=== PATIENT | male | born 1965 | race Caucasian/White ===

== ENCOUNTER → 2024-01-29 14:59 | Outpatient (REF) | payer OTHER, SELFPAY | LOC: RCS 14:59 | PROVIDERS: ATTENDING PHYSICIAN Nuclear Medicine Nuclear Cardiology; FAMILY PHYSICIAN Physician Assistant Medical | DX: R00.1 Bradycardia, unspecified (principal); I25.10 Atherosclerotic heart disease of native coronary artery without angina pectoris | CPT/HCPCS: 93306 ==

== ENCOUNTER 2024-09-21 02:22 | Inpatient (IN) | payer OTHER, SELFPAY ==
[2024-09-20 20:36] VITALS: BP 123/72
[2024-09-20 21:04] LABS: % Basophils 0.4 % (0-2); % Eosinophils 0.1 % (0-6); % Immature Granulocytes 0.4 % (0-0.5); % Lymphocytes 10.9 % (20.5-51.1); % Monocytes 7.2 % (1.7-9.3); Absolute Basophils 0.1 10^3/uL (0-0.2); Absolute Immature Granulocytes 0.1 10^3/uL (0-0.05); Absolute Lymphocytes 1.7 10^3/uL (1.2-3.4); Absolute Monocytes 1.1 10^3/uL (0.1-0.6); Absolute Neutrophils 12.3 10^3/uL (1.4-6.5); Hematocrit 45.5 % (39.0-52.0); Hemoglobin 16.1 g/dL (13.0-18.0); Mean Corp Hgb Conc. 35.4 g/dL (33.0-37.0); Mean Corpuscular Hgb 30.3 pg (27.0-31.0); Mean Corpuscular Volume 85.7 fL (80.0-94.0); Nucleated Red Blood Cells % 0 % (-); Platelet Count 210 10^3/uL (130-400); Red Blood Cell Count 5.31 10^6/uL (4.70-6.10); Red Cell Dist. Width 11.8 % (11.5-14.5); White Blood Cell Count 15.2 10^3/uL (4.8-10.8)
[2024-09-20 21:09] VITALS: BMI 25.8
[2024-09-20 21:15] LABS: Lactic Acid 3.5 mmol/L (0.7-2.0)
[2024-09-20 21:25] LABS: Blood Urea Nitrogen 14 mg/dl (9-20); Calcium 10.2 mg/dl (8.4-10.2); Carbon Dioxide 22 mmol/L (22-30); Chloride 105 mmol/L (98-107); Estimated Creatinine Clearance 94 ml/min; Glucose 109 mg/dl (70-99); Sodium 142 mmol/L (135-145); eGFR > 60.00
[2024-09-20 21:35] LABS: Lipase 142 U/L (23-300)
[2024-09-20 21:53] LABS: ALT (SGPT) 22 U/L (0-50); AST (SGOT) 23 U/L (17-59); Albumin 4.6 g/dl (3.5-5.0); Alkaline Phosphatase 70 U/L (38-126); Direct Bilirubin 0.3 mg/dl (0.0-0.4); Total Bilirubin 1.3 mg/dl (0.2-1.3); Total Protein 6.6 g/dl (6.3-8.2)
--- NOTE | 2024-09-20 22:42 | ED.GENMED ---
History of Present Illness
General
Chief Complaint: Abdominal Pain
Time Seen by Provider: 09/20/24 22:41
History of Present Illness
History of Present Illness:
TIME OF INITIAL ENCOUNTER: 10:45 PM
HPI: The patient presents with diffuse abdominal pain that started this morning and then acutely worsened around 6 PM tonight. The pain has been worsening since that time. This is associated with a few episodes of vomiting. He has not had any
diarrhea. He denies any other abdominal surgeries.
EXAM:
GENERAL: Well appearing but appears very uncomfortable
HEENT: Moist oral mucosa
CARDIOVASCULAR: No murmurs, normal heart rate, regular rhythm, No chest wall tenderness
PULMONARY: No respiratory distress, breath sounds are clear and equal
ABDOMEN: Soft with no peritoneal signs, minimal left-sided abdominal tenderness, more prominent right sided abdominal tenderness mostly in the right lower quadrant
NEUROLOGIC: Excellent strength all extremities, no coordination deficits
PSYCHIATRIC: Appropriate mental status, normal insight and judgement
EXTREMITIES: Nontender, no edema, moves all extremities equally
SKIN: No rash, no lesions
NUMBER AND COMPLEXITY OF PROBLEMS ADDRESSED AT THE ENCOUNTER
� Chronic conditions affecting care: GERD, stomach ulcers, CAD
� Acute Exacerbation and/or Progression of Chronic Illness: This is an acute problem
� Differential Diagnosis includes: Exacerbation of GERD, bowel perforation, mesenteric ischemia
AMOUNT AND/OR COMPLEXITY OF DATA TO BE REVIEWED AND ANALYZED
� I performed an independent evaluation of and my interpretation is:
EKG: Sinus 47, normal axis, no acute ST abnormality
CT: The CAT scan shows dilated appendix measuring 1.3 cm with marked inflammatory changes and some hyperemia
X-rays:
Laboratory Studies: White count 15.2 lactic is 3.5, otherwise chemistries unremarkable
Other:
� Review of other/old records: The patient had an exercise nuclear stress test it was felt to be a low risk study in November 2022
� Clinical information was obtained by an independent historian: I spoke to at bedside
� Prescriptions/Medications Considered but not given:
� Further testing considered but not performed:
RISK OF COMPLICATIONS AND/OR MORBIDITY OR MORTALITY OF PATIENT MANAGEMENT
� Social determinants of health affecting care: Lives at home
� Discussion with other providers: Notified Dr. Dietrich of CT result and patient's workup at 12:25 AM. He recommends hospitalist admission. Dr. Godfrey for admission.
� Escalation of care including admission/observation vs risk of discharge considered: The patient appears very uncomfortable upon arrival. Leukocytosis and elevated lactic noted. I have ordered analgesia, 2 L of fluid, and will
obtain CT imaging emergently.
ANY OTHER UPDATES:
12:25 AM: I reassessed patient, the patient received Dilaudid 1 mg twice.
Past History
Past History
ED Past Medical History: GERD
ED Past Surgical History: None
Social History
Tobacco: Smoker
Alcohol: None
Drug: None
Phy Exam
Physical Exam
Physical Exam:
See HPI
Course
Orders/Labs/Results
Orders:
Orders
09/20/24 20:40
ECG [Electrocardiogram (*1)] Urgent
Reason for Study: Abdominal Pain
EKG- Treatment ONCE
09/20/24 20:49
Basic Metabolic Panel Urgent
Complete Blood Count/With Diff Urgent
Lactic Acid Urgent
Lipase Urgent
09/20/24 21:31
LFT [Znuob-Brfa-Sktkkko] Urgent
Potassium Urgent
09/20/24 22:48
0.9% Sodium Chloride 1000 ml [Nss] 1,000 ml IV BOLUS
0.9% Sodium Chloride 1000 ml [Nss] 1,000 ml IV BOLUS
09/20/24 22:52
Ondansetron Injectable [Zofran] 4 mg .ROUTE .STK-MED ONE
09/20/24 22:53
CT Abd/pelvis W Iv Cont Urgent
Comment:
Reason For Exam: acute severe abd pain, vomiting, high lactic/WBC
HYDROmorphone [Dilaudid] 1 mg .ROUTE .STK-MED ONE
HYDROmorphone [Dilaudid] 1 mg IV NOW STA
Ondansetron Injectable [Zofran] 4 mg IV NOW STA
09/20/24 22:54
Famotidine [Pepcid] 20 mg IV NOW STA
Pantoprazole [Protonix IV] 40 mg IV NOW STA
09/21/24 00:13
HYDROmorphone [Dilaudid] 1 mg IV NOW STA
09/21/24 00:16
MetroNIDAZOLE 500 MG/100 ML [Flagyl 500 mg] 100 ml IV NOW
09/21/24 00:52
Ciprofloxacin 400 mg/[id number] [Cipro 400 mg] 200 ml IV NOW
Abnormal Lab Results
09/20/24
20:49
WBC 15.2 H 10^3/uL
(4.8-10.8)
Abs Immat Gran (auto) 0.1 H 10^3/uL
(0-0.05)
Absolute Neuts (auto) 12.3 H 10^3/uL
(1.4-6.5)
Absolute Monos (auto) 1.1 H 10^3/uL
(0.1-0.6)
Neutrophils % 81.0 H %
(42.2-75.2)
Lymphocytes % 10.9 L %
(20.5-51.1)
Glucose 109 H mg/dl
(70-99)
Lactic Acid 3.5 H mmol/L
(0.7-2.0)
09/20/24 20:49
09/20/24 21:31
Vital Signs
Initial and Last Documented VS:
Initial Vital Signs
Temp Pulse Resp BP Pulse Ox
36.8 C 50 20 123/72 99
09/20/24 20:36 09/20/24 20:36 09/20/24 20:36 09/20/24 20:36 09/20/24 20:36
Last Documented Vital Signs
Temp Pulse Resp BP Pulse Ox
36.8 C 58 13 123/72 92
09/20/24 20:36 09/21/24 00:45 09/21/24 00:45 09/20/24 20:36 09/21/24 00:45
*Critical Care Note
Total Time (30-74mins, 75-104mins- exclusive of procedures): Not Applicable
ED Attending Note
-
Portions of this chart may have been created with voice recognition software.� Occasional wrong word or��sound alike� substitutions may have occurred due to the inherent limitations of voice recognition software.
Discharge Plan
Departure
Patient Disposition: Admit
Date of Disposition: 09/21/24
Time of Disposition: 00:45
Presentation/result/management discussed w/ accepting MD/DO: Hospitalist
Discharge Problem:
Acute appendicitis
Prescriptions:
No Action
aspirin 81 MG tablet,chewable
81 mg PO DAILY 0RF
atorvastatin 80 MG tablet
80 mg PO QPM Qty: 30 5RF
clopidogrel 75 MG tablet
75 mg PO DAILY Qty: 30 5RF
metoprolol succinate 25 MG tablet extended release 24 hr
25 mg PO HS Qty: 30 5RF
lisinopril 2.5 MG tablet
2.5 mg PO DAILY Qty: 30 5RF
Referrals:
Zoe Lemus PA-C [Family Provider] -
Interventions
Interventions:
*Risk Screen - Suicide Last Done: 09/20/24 21:09
*General Assessment Last Done: 09/20/24 20:36
*Neglect/Abuse Screening Last Done: 09/20/24 21:09
*ED- Fall Risk Assessment Last Done: 09/20/24 21:09
*ED COVID-19 Vaccine History Last Done: 09/20/24 21:09
DS-Shmbge-Ogjqejdjja Assessment Last Done: 09/20/24 21:17
Discharge Date and Time
Print Language: [place]
[2024-09-20] MEDS: NSS 1000 IV (22:56)
[2024-09-20] MEDS: ZOFRAN 4 MG IV (22:57)
[2024-09-20] MEDS: DILAUDID 1 MG IV (22:57)
[2024-09-20] MEDS: PEPCID 20 MG IV (22:59)
[2024-09-20] MEDS: PROTONIX IV 40 MG IV (23:03)
[2024-09-21] VITALS (11 sets, daily range): BP systolic 89–133; BP diastolic 48–75; BMI 25.7
[2024-09-21] MEDS: DILAUDID 1 MG IV (00:17)
[2024-09-21] MEDS: NSS 1000 IV (00:20)
[2024-09-21] MEDS: FLAGYL 500 MG 100 IV ×2 (00:47→08:27)
--- NOTE | 2024-09-21 02:03 | HPS.HSE ---
Family Physician
-
Family Physician: Zoe Lemus PA-C
Chief Complaint
-
Abd pain
History of Present Illness
Patient is a 59y M with PMH significant for ASCVD who presents to ED complaining of abdominal pain. Patient states that he woke Monday AM with generalized abdominal discomfort that gradually worsened throughout the day. This evening he
developed nausea and has had three episodes of non-bloody emesis. He states that that pain has ultimately consolidated in the RLQ and low back. He presented to the ED for further evaluation where CT scan shows acute appendicitis.
Medical History
Past Medical History
Past Medical History: Reports Other
Additional Past Medical History:
ASCVD
GERD
Past Surgical History: Reports Other
Additional Past Surgical History:
PTCA with Stent (2019)
T&A
Social History
Tobacco: Former Smoker (History of tobacco use > 20 pack years. Current vape use.)
Alcohol: Occasional
Drug: None
Family History
Family History: Not pertinent
Allergies / Home Medications
Allergies reflects when Allergies were last updated in [facility].
Home Medications with original date entered in [facility]
Allergy/Medication List:
Allergies
Allergy/AdvReac Type Severity Reaction Status Date / Time
Penicillins Allergy Unknown Verified 09/20/24 20:36
Home Medications
aspirin 81 mg chewable tablet 81 mg PO DAILY 03/26/20
atorvastatin 80 mg tablet 80 mg PO QPM #30 tabs 03/27/20
lisinopril 2.5 mg tablet 2.5 mg PO DAILY #30 tabs 03/27/20
metoprolol succinate 25 mg tablet,extended release 24 hr 12.5 mg PO HS 09/21/24
Review of Systems
-
History Source: Patient
A 12 point ROS was completed and negative except as noted: Yes
Constitutional: Denies Fever or Chills
EENT: Denies Sore Throat
Respiratory: Denies Cough or Trouble Breathing
Cardiac: Denies Chest Pain or Palpitations
Abdomen/GI: Reports Abdominal Pain, Nausea and Vomiting; Denies Diarrhea or Bloody Stools
: Denies Dysuria, Frequency or Flank Pain
Musculoskeletal: Denies Edema
Neurological: Denies Dizzy or Headache
Psych: Denies Depression or Anxiety
Physical Exam
Vital Signs
Vital Signs
Temp Pulse Resp BP Pulse Ox
98.2 F 57 14 117/75 94
09/20/24 20:36 09/21/24 01:45 09/21/24 01:45 09/21/24 01:09 09/21/24 01:45
Physical Exam
General: Other (59y M in mild distress due to abdominal pain.)
HEENT: Moist mucous membranes and PERRLA
Respiratory: Clear; No Wheezes, Rales or Rhonchi
Cardiac: S1/S2 and Regular Rhythm; No Murmur
GI: Soft, Non Distended, Normal Bowel Sounds and Other (Pos RLQ tenderness with guarding. No rebound. Pos BS.)
Musculoskeletal: No Clubbing, No Cyanosis and No Edema
Neuro: AO x 3
Laboratory Results
-
09/20/24 20:49
09/20/24 21:31
Laboratory Results
Lactic Acid 3.5 mmol/L (0.7-2.0) H 09/20/24 20:49
Total Bilirubin 1.3 mg/dl (0.2-1.3) 09/20/24 21:31
AST 23 U/L (17-59) 09/20/24 21:31
ALT 22 U/L (0-50) 09/20/24 21:31
Alkaline Phosphatase 70 U/L (38-126) 09/20/24 21:31
Lipase 142 U/L (23-300) 09/20/24 20:49
Impression/Plan
-
A/P: Patient is a 59y M with PMH significant for ASCVD who presents to ED complaining of abdominal pain x 24 hours.
Acute Appendicitis
- Admit for further evaluation and treatment.
- Continue abx with Cipro / Flagyl for now given PCN allergy.
- Pain control, antiemetics, etc.
- Surgery consulted for definitive treatment.
ASCVD
- PTCA 5 years ago.
- Continue ASA uninterrupted.
- Hold other medications (beta-gary, statin, etc) acutely and resume upon discharge.
Sinus Bradycardia
- Long history of bradycardia - evaluated / reassured by Cardiology in the past.
- Holding metoprolol acutely as noted above.
- Monitor on tele for any significant blocks / pauses.
DVT Prophylaxis: SCDs
Code Status: Full
[2024-09-21] MEDS: CIPRO 400 MG 200 IV ×2 (02:08→12:57)
[2024-09-21] MEDS: LR 1000 IV (03:30)
[2024-09-21] MEDS: DILAUDID 0.5 MG IV ×3 (03:32→10:01)
--- NOTE | 2024-09-21 04:27 | PTCARENOTE ---
Pt arrived 0330 from ED. Pt was able to ambulate into room. VSS. IVF infusing. pain 12/29 (see MAR). head to toe assessment complete. oriented to room and call amezquita. bed locked and in the lowest position.
--- NOTE | 2024-09-21 07:39 | W.PN.HOSP.TC ---
Addendum entered and electronically signed by Jackson Sanchez MD 09/21/24 15:33:
Seen and examined by me independently in collaboration with the certified medical coding specialist.
Lab data and imaging data reviewed.
Addendum as below :
Patient admitted with uncomplicated appendicitis and now status post lap appendectomy without immediate complication. Cleared for discharge per surgery. Continue with postop antibiotics per surgery.
No new medical issues encountered. Continue with his home medication as before without changes.
Follow-up with surgery as outpatient for postop check.
Original Note:
Today's Communication/Plan
-
s/p lap appendectomy
can d/c today on PO abx levaquin/flagyl
Assessment / Plan
Assessment / Plan
59 yo male with acute abdominal pain initially generalized which localized to the RLQ
CT Abd/Pelvis - kushal carrero read showing acute uncomplicated appendicitis. Pending our read.
#Acute Uncomplicated Appendicitis s/p appendectomy
#Sepsis 2/2 acute appendicitis
- leukocytosis, tachypnea, source of infection
- Blood cx drawn, results pending
- s/p 2L LR bolus; c/w IVF
- on IV Cipro/Flagyl due to penicillin allergy
- prn tylenol/dilaudid, compazine
- Surgery consulted -- uneventful laparoscopic appendectomy -- cleared for d/c from surgery on levquin/flagyl
#ASCVD
H/o of PTCA 2019
- c/t hold statins
- c/t hold antihypertensives given acute infection/risk of hypotension
#Sinus Bradycardia
- chronic, managed by cardiology op.
- ECG this admission consistent with prior in 2019
- holding BB
- observe for symptomatic bradycardia
DVT PPx: SCDs
Code Status: Full Code
Anticipated Discharge: 24 - 48 hours
Subjective/Interval History
-
Date of Service: September 21, 2024
Still in significant pain this morning, barely relieved by IV dilaudid.
Objective Data
-
Labs:
Laboratory Results
09/20/24 09/20/24 09/21/24
20:49 21:31 07:16
WBC 15.2 H Pending
Hgb 16.1 Pending
Hct 45.5 Pending
Plt Count 210 Pending
PT Pending
INR Pending
APTT Pending
Sodium 142 Pending
Potassium 4.0 Pending
Chloride 105 Pending
Carbon Dioxide 22 Pending
BUN 14 Pending
Creatinine 0.9 Pending
Glucose 109 H Pending
Calcium 10.2 Pending
Total Bilirubin Cancelled 1.3
AST Cancelled 23
ALT Cancelled 22
Alkaline Phosphatase Cancelled 70
Vital Signs:
Vital Signs
Temp Pulse Resp BP Pulse Ox
98.0 F 53 18 102/48 99
09/21/24 03:15 09/21/24 03:15 09/21/24 03:15 09/21/24 03:15 09/21/24 04:22
Review of Systems
-
Constitutional: Reports No Symptoms
EENT: Reports No Symptoms Reported
Respiratory: Reports No Symptoms
Cardiac: Reports No Symptoms
Abdomen/GI: Reports Abdominal Pain; Denies Nausea, Vomiting or Diarrhea
Musculoskeletal: Reports No Symptoms
Skin: Reports No Symptoms
Physical Exam
-
General: Well Developed, Well Nourished, Appears in Distress and Pain
HEENT: Normocephalic, Atraumatic, Moist Mucous Membranes, Anicteric, [place] Conjunctivae, Nose Appears Normal and Ears Appear Normal
Respiratory: Clear to Auscultation; Negative Wheezes, Rales or Rhonchi
Cardiac: Regular Rhythm and S1/S2; Negative Murmur or Rub
GI: Soft and Tender
Genito-urinary: Deferred by me
Musculoskeletal: No Clubbing, No Cyanosis and No Edema
Skin: Warm, Dry and IV Access / Catheter Site
Neuro: Awake, Alert and Oriented
[2024-09-21] MEDS: LOW STRENGTH ASPIRIN 81 MG PO (08:09)
[2024-09-21 08:21] LABS: Hemoglobin 14.2 g/dL (13.0-18.0); Mean Corp Hgb Conc. 34.6 g/dL (33.0-37.0); Mean Corpuscular Hgb 30.4 pg (27.0-31.0); Mean Corpuscular Volume 87.8 fL (80.0-94.0); Mean Platelet Volume 10.2 fL (7.4-10.4); Platelet Count 200 10^3/uL (130-400); Red Blood Cell Count 4.67 10^6/uL (4.70-6.10); White Blood Cell Count 12.2 10^3/uL (4.8-10.8)
[2024-09-21 08:30] LABS: INR 1.07; PT 14.2 Sec (11.4-14.6)
[2024-09-21 08:31] LABS: APTT 28.2 Sec (23.4-35.0)
[2024-09-21 08:54] LABS: Blood Urea Nitrogen 13 mg/dl (9-20); Calcium 8.9 mg/dl (8.4-10.2); Carbon Dioxide 27 mmol/L (22-30); Chloride 104 mmol/L (98-107); Estimated Creatinine Clearance 94 ml/min; Glucose 102 mg/dl (70-99); Potassium 4.3 mmol/L (3.5-5.1); Sodium 139 mmol/L (135-145); eGFR > 60.00
[2024-09-21 10:05] LABS: LDH 143 U/L (120-246)
--- NOTE | 2024-09-21 10:54 | CM ---
Addendum entered by Cindy Shook 09/21/24 15:22:
Patient states he has a ride home and declined VN. Patient for discharge home today. CM will continue to follow for discharge needs.
Original Note:
Patient seen at bedside in [address] [place] [address]. Patient states that he lives alone in a one story home. Patient PCP is CHAVA Lemus and he uses the [facility] in [place]. Patient stated that he is independent of ADL's and IADL's with no needs at this
time. CM will continue to follow for discharge planning needs.
Plan; home with no needs anticipated.
--- NOTE | 2024-09-21 11:30 | CON.GS ---
Addendum entered and electronically signed by Alexandre Dietrich MD 09/21/24 12:27:
I saw and examined the patient.
The Government Gauger's note was reviewed and I agree with the note.
Comment: Ongoing RLQ pain, mod-sev, ttp to RLQ. CT c/w acute appendicitis, uncomplicated. OCTOR for lap appy
Original Note:
Consultation
-
Date/Time Consultation Performed: 09/21/2024 0910
Medical History
-
Chief Complaint: rlq pain
History of Present Illness:
59 yo male with a h/o CAD with OK s/p stent in 2019, nl stress testing in 2022 and T&A who presents with RLQ pain which began yesterday morning awakening him from sleep. He developed nausea and vomiting later that day with worsening pain causing him
to present through the ED for evaluation. He has persistent pain this morning although nausea has improved. He denies fevers or chills. he alise bowel or bladder changes.
Past Medical History
Past Medical History: CAD and OK
Past Surgical History: Cardiac (LAD stent 2019) and Tonsilectomy
Social History
Tobacco: Other (prior cigarette smoker, active Vape user)
Alcohol: Occasional
Family History
Family History: Reviewed & Not Pertinent
Allergies / Home Medications
Allergy/AdvReac Type Severity Reaction Status Date / Time
Penicillins Allergy Unknown Verified 09/20/24 20:36
�Medication �Instructions �Recorded �Confirmed �Type
aspirin 81 mg chewable tablet 81 mg PO DAILY 03/26/20 09/21/24 Rx
atorvastatin 80 mg tablet 80 mg PO QPM #30 tabs 03/27/20 09/21/24 Rx
lisinopril 2.5 mg tablet 2.5 mg PO DAILY #30 tabs 03/27/20 09/21/24 Rx
metoprolol succinate 25 mg 12.5 mg PO HS 09/21/24 09/21/24 History
tablet,extended release 24 hr
Review of Systems
-
History Source: Patient
All other systems: Negative unless noted
A 10 point review of systems was completed, and was negative except as per HPI.
Physical Exam
Vital Signs
Temp Pulse Resp BP Pulse Ox
99.6 F 56 16 133/63 95
09/21/24 07:55 09/21/24 07:55 09/21/24 07:55 09/21/24 07:55 09/21/24 07:55
09/20/24 09/21/24 09/22/24
06:59 06:59 06:59
Actual Weight 83.461 kg
Body Mass Index (BMI) 25.7
Lab Results
09/21/24 07:16
09/21/24 07:16
WBC 12.2 10^3/uL (4.8-10.8) H 09/21/24 07:16
Hgb 14.2 g/dL (13.0-18.0) 09/21/24 07:16
Hct 41.0 % (39.0-52.0) 09/21/24 07:16
Plt Count 200 10^3/uL (130-400) 09/21/24 07:16
Abs Immat Gran (auto) 0.1 10^3/uL (0-0.05) H 09/20/24 20:49
Neutrophils % 81.0 % (42.2-75.2) H 09/20/24 20:49
Physical Exam
General: Well Developed and Well Nourished
HEENT: Moist Mucous Membranes
Respiratory: Non Labored Respirations
GI: Soft, Non Distended, Tender (severe to RLQ) and Other (voluntary gaurding)
Skin: Warm and Dry
Neuro: Awake, Alert and AO x 3
Psych: Calm
Assessment / Plan
-
59 yo male with h/o OK and stent in 2019 who presents with RLQ pain over the last 24h with n/v. CT imaging reviewed and consistent with acute appendicitis as is his exam. No perforation evident on imaging. Leukocytosis present, afebrile. Stable
vital signs. Lactic acid elevated to 3.5 in ED. Blood cx pending.
--Will arrange for laparoscopic appendectomy today
--NPO for OR/IVF while NPO
--C/W cipro/flagyl
--Analgesics/antiemetics
--SCDs for VTE ppx
--- NOTE | 2024-09-21 12:28 | OR.RPT ---
Operative Report
Operative Report
Primary Surgeon: Karlo
Pre-op Diagnosis: Acute appendicitis
Post-op Diagnosis: Same
Procedure Performed: Laparoscopic appendectomy
Anesthesia Type: GETA
Specimen / Cultures: Appendix
Estimated Blood Loss: 10cc
Complications: None immediate
Operative Findings: Inflamed retrocecal non-perforated appendix with gangrenous changes; scan yellow turbid fluid in pelvis suctioned
Date of Surgery: 09/21/24
Indications: This 59M developed right lower quadrant abdominal pain and on workup was found to have acute appendicitis. Laparoscopic appendectomy was elected.
Description of procedure: The patient was placed on the operating table in the supine position. General anesthesia was induced. A time-out was completed verifying correct patient, procedure, site, positioning, and special equipment prior to
beginning this procedure. An orogastric tube was placed. The abdomen was prepped and draped in the usual sterile fashion. A stab incision was made in left upper quadrant and the Veress needle was inserted. Proper position was confirmed by aspiration
and saline meniscus test. The abdomen was insufflated with carbon dioxide to a pressure of 12 mmHg. The patient tolerated insufflation well.
A 5mm optical trocar was then inserted at the left lower quadrant. The laparoscope was inserted and the abdomen inspected. No injuries from initial trocar placement or Veress needle insertion were noted. Additional trocars were then inserted in the
following locations: a 12-mm trocar at the umbilicus and a 5-mm trocar midline in the suprapubic space. The abdomen was inspected and no abnormalities were found. The table was placed in the Trendelenburg position with the right side up. The tip of
the appendix was in retrocecal position, it was bluntly swept inferiorly and the tip was gently grasped with an atraumatic grasper and retracted toward the patient�s feet and abdominal wall. This maneuver exposed the appendiceal blood supply which
was controlled with the voyant device. Following this, a laparoscopic linear cutting stapler with a 45mm yee load was deployed and used to transect the appendix at its base. The appendix was placed in an endoscopic retrieval bag, removed through the
umbilical port, and passed off the table as a specimen.
We then turned our attention to the staple line, which was noted to be hemostatic. Scant turbid yellow fluid was suctioned from the pelvis. The umbilical trocar site was closed at the fascial level laparoscopically with 2-0 PDS under direct vision.
Secondary trocars were removed under direct vision and noted to be hemostatic. The laparoscope was withdrawn and the abdomen was allowed to collapse. The skin was closed with subcuticular sutures of 4-0 monocryl and topical skin adhesive. The
orogastric tube was removed.
The patient tolerated the procedure well and was taken to the postanesthesia care unit in stable condition.
[2024-09-21] MEDS: TYLENOL 650 MG PO (14:57)
--- NOTE | 2024-09-21 18:34 | W.DCSUMMARY ---
Discharge Summary
Discharge Data
Date of Admission: 09/21/24
Date of Discharge: 09/21/24
Total time spent discharging patient (in min): >30m
-
Pending Results: No
Additional Pending Results:
Blood Cultures
Hospital Course
Discharging Physician : Dr. Stone Price, Dr. Jackson Sanchez
Disposition : Home
Primary care physician : Dr. Zoe Lemus
Principal Discharge diagnosis : Acute Appendicitis, Laparoscopic Appendectomy
Chronic Discharge diagnosis : ASCVD, Sinus Bradycardia
Hospital Course :
59 yo male with acute abdominal pain initially generalized, which localized to the RLQ
#Acute Uncomplicated Appendicitis s/p appendectomy
#Sepsis 2/2 acute appendicitis
- leukocytosis, tachypnea, source of infection
- Blood cx drawn, results pending
- given 2L LR bolus; c/w IVF
- given IV Cipro/Flagyl due to penicillin allergy
- prn Tylenol/Dilaudid for pain, Compazine for nausea
- Surgery consulted -- patient was taken for uneventful laparoscopic appendectomy -- cleared for d/c from surgery on oral abx levquin/flagyl
#ASCVD
H/o of PTCA 2019
- statins held and resumed on discharge
- antihypertensives held given acute infection/risk of hypotension; resumed on discharge
#Sinus Bradycardia
- chronic, managed by cardiology as outpatient
- ECG this admission consistent with prior in 2019
- Metoprolol Succinate was held; resumed on admission
- no symptoms of bradycardia
Important imaging findings :
CT Abd/pelvis W Iv Cont:
Findings consistent with acute uncomplicated appendicitis.
Procedure findings :
Laparoscopic appendectomy:
Inflamed retrocecal non-perforated appendix with gangrenous changes; scan yellow turbid fluid in pelvis suctioned.
Discharge Plan
-
Patient Disposition: Home (Routine Discharge)
Discharge Diagnosis/Procedures: Acute appendicitis, laparoscopic appendectomy
Condition: Good
Diet: No restrictions
Activity: No strenuous activity and Other activity
Additional Activity: No heavy lifting until seen by surgeon
Driving Restrictions: As prior to admission
Bathing Restrictions: OK to Shower
Referrals:
Alexandre Dietrich MD [Active] - in two to four weeks
Zoe Lemus PA-C [Family Provider] -
Prescriptions:
New
levofloxacin 750 mg tablet
750 mg PO DAILY 5 Days Qty: 5 0RF
metronidazole 500 mg tablet
500 mg PO Q8H 5 Days Qty: 15 0RF
oxycodone 5 mg tablet
5 mg PO Q4HPRN PRN (Reason: breakthrough/severe pain) Qty: 10 0RF
Continued
aspirin 81 MG tablet,chewable
81 mg PO DAILY 0RF
atorvastatin 80 MG tablet
80 mg PO QPM Qty: 30 5RF
lisinopril 2.5 MG tablet
2.5 mg PO DAILY Qty: 30 5RF
metoprolol succinate 25 MG tablet extended release 24 hr
12.5 mg PO HS
Discharge Orders:
Discharge Patient (As Directed); Ordered 09/21/24
Ordered By: Stone Price
Discharge Date and Time
Discharge Date/Time: 09/21/24 15:38
Print Language: [place]
== END 2024-09-21 15:38 | disposition home or self-care (01) | DRG 397 ==
LOC: 2 SOUTH 02:22
PROVIDERS: Emergency Medicine; ADMITTING PHYSICIAN Hospitalist; ATTENDING PHYSICIAN Internal Medicine; CONSULT PHYSICIAN Surgery; EMERGENCY PHYSICIAN Emergency Medicine; FAMILY PHYSICIAN Physician Assistant Medical
PROC: 0DTJ4ZZ Resection of Appendix, Percutaneous Endoscopic Approach (ICD-10-PCS; 2024-09-21)
DX: K35.891 Other acute appendicitis without perforation, with gangrene (principal); A41.9 Sepsis, unspecified organism; I25.10 Atherosclerotic heart disease of native coronary artery without angina pectoris; Z88.0 Allergy status to penicillin; K21.9 Gastro-esophageal reflux disease without esophagitis; Z95.5 Presence of coronary angioplasty implant and graft; Z79.82 Long term (current) use of aspirin; F17.200 Nicotine dependence, unspecified, uncomplicated; Z79.899 Other long term (current) drug therapy
CPT/HCPCS: 88304; 74177; 80048; 80076; 83605; 83615; 83690; 84132; 85025; 85027; 85610; 85730; 87040; 93005; 96361; 96365; 96375; 96376; 99285; C1776; Q9967

== ENCOUNTER 2024-09-29 23:24 | Observation (INO) | payer OTHER, SELFPAY ==
[2024-09-29 16:01] VITALS: BP 123/79
[2024-09-29 17:27] LABS: % Basophils 0.4 % (0-2); % Eosinophils 2.7 % (0-6); % Immature Granulocytes 0.8 % (0-0.5); % Lymphocytes 13.9 % (20.5-51.1); % Monocytes 5.5 % (1.7-9.3); % Neutrophils 76.7 % (42.2-75.2); Absolute Eosinophils 0.3 10^3/uL (0-0.7); Absolute Immature Granulocytes 0.1 10^3/uL (0-0.05); Absolute Lymphocytes 1.4 10^3/uL (1.2-3.4); Absolute Monocytes 0.6 10^3/uL (0.1-0.6); Absolute Neutrophils 7.6 10^3/uL (1.4-6.5); Hematocrit 47.4 % (39.0-52.0); Hemoglobin 16.5 g/dL (13.0-18.0); Mean Corp Hgb Conc. 34.8 g/dL (33.0-37.0); Mean Corpuscular Hgb 30.2 pg (27.0-31.0); Mean Corpuscular Volume 86.8 fL (80.0-94.0); Mean Platelet Volume 9.6 fL (7.4-10.4); Nucleated Red Blood Cells % 0 % (-); Platelet Count 211 10^3/uL (130-400); Red Blood Cell Count 5.46 10^6/uL (4.70-6.10); Red Cell Dist. Width 12.3 % (11.5-14.5)
[2024-09-29 17:34] LABS: Lactic Acid 2.2 mmol/L (0.7-2.0)
[2024-09-29 17:36] LABS: ALT (SGPT) 84 U/L (0-50); AST (SGOT) 44 U/L (17-59); Albumin 4.5 g/dl (3.5-5.0); Alkaline Phosphatase 65 U/L (38-126); Blood Urea Nitrogen 18 mg/dl (9-20); COVID-19 Antigen Negative (Negative); Calcium 9.3 mg/dl (8.4-10.2); Carbon Dioxide 24 mmol/L (22-30); Chloride 102 mmol/L (98-107); Glucose 94 mg/dl (70-99); Sodium 139 mmol/L (135-145); Total Bilirubin 1.2 mg/dl (0.2-1.3); Total Protein 6.7 g/dl (6.3-8.2); eGFR > 60.00
--- NOTE | 2024-09-29 18:40 | ED.GENMED ---
History of Present Illness
General
Chief Complaint: Fever
Source: patient
Exam Limitations: none
Time Seen by Provider: 09/29/24 18:22
Nursing documentation reviewed up to this point in time: agreed with
History of Present Illness
History of Present Illness:
Patient is a 59-year-old male with history CAD s/p stent, hyperlipidemia, currently 8 days postop laparoscopic appendectomy presenting to the emergency department with fevers. Patient reports feeling generally unwell and weak since his appendectomy
last Monday. However�on Monday night he started with subjective fevers and shaking chills. He reports worsening weakness, as well. He denies any significant abdominal pain. He has had mild nausea although denies any episodes of vomiting. He
is having bowel movements. He denies any dysuria. He denies any cough or shortness of breath.
Patient states that he completed antibiotics 2 days ago as prescribed general surgery.
He does report somewhat diffuse joint pain and is wondering if he may have COVID as his symptoms feel similar to past.
Past History
Past History
ED Past Medical History: GERD
ED Past Surgical History: None
Social History
Tobacco: Smoker
Alcohol: None
Drug: None
Review of Systems
Review of Systems
Allergies reviewed?: Yes
All Other Systems: ROS reviewed and negative except as documented in HPI and ROS
Phy Exam
Physical Exam
Physical Exam:
Vitals: Patient's vital signs are stable. Afebrile
General: Patient is well appearing, no acute distress. Nontoxic appearing
Skin: Warm and dry, no rashes or lesions
Head: Normocephalic, atraumatic
Eyes: Sclera nonicteric. EOMs intact. No nystagmus.
Throat: Protecting airway
Neck: Normal ROM, no cervical spine tenderness, no meningismus
Cardiac: Regular rate and rhythm, no murmurs.
Pulm: Normal respiratory effort, no wheezes, rales, rhonchi heard on exam
.
Abdomen: Well-healing laparoscopic incisions without surrounding erythema, warmth, red streaking. Abdomen soft with mild tenderness in right lower quadrant without rebound tenderness or guarding.
Extremities: No evidence of cyanosis or edema. Palpable DP pulses bilaterally
Neuro: AAOx3. Grossly intact.
Psychiatric: Normal affect.
Course
Orders/Labs/Results
Orders:
Orders
09/29/24 17:07
COVID-19 Antigen Urgent
Source: Nasal Swab
Complete Blood Count/With Diff Urgent
Comprehensive Metabolic Panel Urgent
Influenza A+B Rapid Molecular Urgent
CHARISSA Source: Nasal Swab
Specimen Description:
09/29/24 17:08
Lactate Level [Lactic Acid] Urgent
09/29/24 18:35
0.9% Sodium Chloride 1000 ml [Nss] 1,000 ml IV BOLUS
09/29/24 18:36
CT Abd/pelvis W Iv Cont Urgent
Comment: appendectomy 09/21/24
Reason For Exam: Fevers
09/29/24 20:31
Acetaminophen [Tylenol] 650 mg PO NOW STA
09/29/24 21:34
Lactic Acid Urgent
Urinalysis Reflex To Culture Urgent
Date Specimen was Collected: 09/29/24
Time Specimen was Collected: 21:31
Urine Microscopic Reflex Cult Urgent
Blood Culture Q30M
CHARISSA Source: Blood/Venous
Specimen Description:
Urine Culture Urgent
CHARISSA Source: U
Specimen Description:
Date Specimen was Collected: 09/29/24
Time Specimen was Collected: 21:31
09/29/24 21:47
Blood Culture Q30M
CHARISSA Source: Blood/Venous
Specimen Description:
09/29/24 23:00
Flush (0.9% Sodium Chloride) [Flush (Nss)] See Dose Instructions IV PER PROTOCOL
09/29/24 23:09
Admit/Transfer Patient As Directed
Co-Sign Provider:
Level of Care: Observation services
Assign to:: Medical/Surgical
Physician / Group: Tory
Diagnosis: Fever
Code Status As Directed
Resuscitation Status: Full Code
PRN Pain Medication Management As Directed
May give lesser potent ordered pain med per pt: Yes
preference::
Protocol:: Medication orders for pain may be administered in a
manner that supports deferring to patient preference
when the pt is:
- Requesting an ordered lesser potent pain medication.
Least to most potent pain medications are defined
as: acetaminophen < NSAID < tramadol < opioids
(morphine, oxycodone, hydromorphone).
- Requesting a lesser dose of the same medication IF
ORDERED.
- Requesting a less intrusive route of administration
if both routes are prescribed by the provider (PO <
IV).
09/30/24 01:59
0.9% Sodium Chloride 1000 ml [Nss] 1,000 ml IV 125 mls/hr
Acetaminophen [Tylenol] 650 mg PO Q4HPRN PRN
Bisacodyl [Dulcolax] 10 mg RECTAL [id number] PRN
Docusate W/Senna [Senokot-S] 1 tablet PO BIDPRN PRN
Ondansetron Injectable [Zofran] 4 mg IV Q6HPRN PRN
Oxycodone [Roxicodone] 5 mg PO Q4HPRN PRN
Polyethylene Glycol Powder [Miralax] 17 grams PO DAILYPRN PRN
09/30/24 01:59
SURGICAL CONSULT Routine
Consulting Provider: Montez Dowell
Was physician already notified: Yes
Reason for consult: fever 8 days s/p lap appendectomy
Activity As Directed
Activity Level: With Assistance
Vital Signs As Directed
Frequency: Per unit guidelines
Pulse Ox/spot Check [RESP] Routine
Quantity: 1
DX Deep Vein Thrombosis Video Routine
09/30/24 06:00
Basic Metabolic Panel IN AM
Complete Blood Count/No Diff IN AM
09/30/24 08:00
Aspirin Chewable [Low Strength Aspirin] 81 mg PO DAILY
Lisinopril [Zestril] 2.5 mg PO DAILY
09/30/24 Dinner
Regular
At Your Request: Full Participation
Does patient need a safe tray?: No
09/30/24 18:00
Atorvastatin [Lipitor] 80 mg PO QPM
Enoxaparin Sodium [Lovenox] 40 mg SC QPM
09/30/24 22:00
Metoprolol Xl [Toprol Xl] 12.5 mg PO HS
Abnormal Lab Results
09/29/24 09/29/24 09/29/24
17:07 17:08 21:34
Abs Immat Gran (auto) 0.1 H 10^3/uL
(0-0.05)
Absolute Neuts (auto) 7.6 H 10^3/uL
(1.4-6.5)
Immature Gran % 0.8 H %
(0-0.5)
Neutrophils % 76.7 H %
(42.2-75.2)
Lymphocytes % 13.9 L %
(20.5-51.1)
Lactic Acid 2.2 H mmol/L
(0.7-2.0)
ALT 84 H U/L
(0-50)
Urine Ketones 3+ A
(Negative)
Ur Occult Blood Reflex 1+ A
(Negative)
Leukocyte Esterase Rfl 1+ A
(Negative)
Urine Bacteria (Reflex) Few A
(Negative)
Urine Albumin (Reflex) 2+ A
(Neg - Trace)
09/29/24 17:07
09/29/24 17:07
Vital Signs
Temp: 100.8 F
Initial and Last Documented VS:
Initial Vital Signs
Temp Pulse Resp BP Pulse Ox
98.6 F 81 16 123/79 100
09/29/24 16:01 09/29/24 16:01 09/29/24 16:01 09/29/24 16:01 09/29/24 16:01
Last Documented Vital Signs
Temp Pulse Resp BP Pulse Ox
98.7 F 86 14 97/71 97
09/29/24 22:26 09/30/24 00:00 09/30/24 00:00 09/30/24 00:00 09/30/24 00:00
MDM/Problems Addressed
Differential Diagnosis Includes:
Not limited to: Viral illness, bacteremia, UTI, intra-abdominal abscess, etc.
MDM/Problems Addressed:
59-year-old male with history as documented, specifically 8 days s/p laparoscopic appendectomy presenting with 2 days of fevers and weakness. No vomiting, abdominal pain, dysuria. Vital stable on arrival and afebrile. Physical exam as above.
Patient in no apparent distress. Cardio/pulmonary assessment unremarkable. Abdomen is soft with no focal tenderness and incisional sites which appear to be well-healing without signs of surrounding cellulitis. Patient is perfusing well. Given
recent appendectomy�concern for acute intra-abdominal infection including postoperative complication. Other considerations include viral illness, UTI, or bacteremia. Do not suspect respiratory source as patient has no cough or URI symptoms. Basic
labs sent in triage and reviewed. No leukocytosis. Initial lactic of 2.2. Otherwise chemistry unremarkable. Will send blood cultures and repeat lactic. Will check CT scan abdomen/pelvis. Will give IV fluids and closely monitor.
Update: Patient did spike fever of 100.8 F in ED. Will give Tylenol. CT pending. Fluids running.
Update: CT abdomen/pelvis without acute findings. No evidence of acute intra-abdominal infection. Viral studies are negative. Repeat lactic decreased to 1.2 following IV fluids. Urinalysis does not appear infected. Patient states he feels
'lousy 'and weak. Unknown source for fever today. Possible underlying viral illness although cannot exclude bacteremia. Given associated weakness and recent surgical procedure�feel patient should be admitted to hospital for further observation
pending blood culture results. Will hold antibiotics at this time. Patient accepted to hospitalist service in stable condition.
Chronic conditions affecting care:
Recent laparoscopic appendectomy
Acute Exacerbation and/or Progression of Chronic Illness:
N/A
*Radiology
Radiology exam reviewed: radiology read reviewed
*Pulse Oximetry
Patient hypoxic: no
*EKG
Interpreted by ED Provider?: NA
*Ruling Machine Operator Interpretation
Rate: Ruling Machine Operator- N/A
*Critical Care Note
Total Time (30-74mins, 75-104mins- exclusive of procedures): Not Applicable
Data Reviewed
Review of Other/Old Records Reveals: Operative Reports (Reviewed operative report from 09/21/2024-uncomplicated laparoscopic appendectomy)
Source: previous hospital records
Patient Management
Discussion with other providers: Hospitalist
Escalation/DeEscalation of care consider admission/obs:
Admit for further pending blood culture results
ED Attending Note
-
Portions of this chart may have been created with voice recognition software.� Occasional wrong word or��sound alike� substitutions may have occurred due to the inherent limitations of voice recognition software.
Discharge Plan
Departure
Patient Disposition: Admit
Date of Disposition: 09/29/24
Time of Disposition: 22:33
Presentation/result/management discussed w/ accepting MD/DO: Hospitalist
Discharge Problem:
Fever
Interventions
Interventions:
*Risk Screen - Suicide Last Done: 09/29/24 16:01
*General Assessment Last Done: 09/29/24 16:01
*Neglect/Abuse Screening Last Done: 09/29/24 16:01
*ED- Fall Risk Assessment Last Done: 09/29/24 19:31
ED- Neurological Assessment Last Done: 09/29/24 19:34
ED-Skin Assessment Last Done: 09/29/24 19:34
[2024-09-29 19:15] VITALS: BMI 25.0
[2024-09-29 19:17] VITALS: BP 119/77
[2024-09-29] MEDS: NSS 1000 IV (19:27)
--- NOTE | 2024-09-29 19:36 | EDRN ---
Pt had an appendectomy 8 days ago and says he has had intermittent fevers and weakness over the past 2 days with generalized body aches. No ill contacts. Pt denies abdominal pain. Nausea no vomiting. Pt has been eating about 1/3 what he usually
eats. Last BM this morning or last night. Pt finished abx, did not fill oxycodone prescription. Pt did not take his temp at home, felt chills. Pt denies cp, sob, urinary symptoms, dizziness.
[2024-09-29] MEDS: TYLENOL 650 MG PO (20:37)
[2024-09-29 20:40] VITALS: BP 109/69
[2024-09-29 21:00] VITALS: BP 111/68
[2024-09-29 21:46] LABS: Urine Albumin 2+ (Neg - Trace); Urine Bilirubin Negative (Negative); Urine Character Slightly Cloudy (Clear); Urine Color Yellow; Urine Glucose Negative (Negative); Urine Ketone 3+ (Negative); Urine Leukocyte 1+ (Negative); Urine Nitrite Negative (Negative); Urine Occult Blood 1+ (Negative); Urine Urobilinogen Negative (Neg - 1+)
[2024-09-29 21:52] LABS: Urine Mucus Few; Urine Squamous Cell 0-2 /LPF (Few)
[2024-09-29 21:53] LABS: Urine Bacteria Few (Negative); Urine Red Blood Cell 0-2 /HPF (0-2); Urine White Cell 0-2 /HPF (0-5)
[2024-09-29 21:58] LABS: Lactic Acid 1.2 mmol/L (0.7-2.0)
[2024-09-29 22:00] VITALS: BP 105/59
--- NOTE | 2024-09-29 22:55 | HPS.HSE ---
Family Physician
-
Family Physician: Zoe Lemus PA-C
Chief Complaint
-
Fever
History of Present Illness
This is a 59-year-old male with past medical history significant for hypertension, hyperlipidemia, prior PCI who presents to the emergency department with fever approximately 8 days status post laparoscopic appendectomy.
Patient appeared to have had low-grade fever prior to surgery. S/p surgery on antibiotics patient been afebrile. He was discharged on levofloxacin and metronidazole. He completed the course of antibiotics yesterday. Said for about the last 2
days he has been having low-grade fevers and some weakness. He spent some time in the sun yesterday and reported that he feels more dehydrated but has been tolerating p.o. He says he has had small bowel movements over the last 2 to 3 days. He
denies any nausea or vomiting. He denies any abdominal pain. He denies any urinary symptoms. He denies flank pain. He states that he developed a rash that started last night/this morning affecting his bilateral proximal upper extremities.
Denies any pruritus. He denies any respiratory symptoms.
On arrival in the emergency department he had a Tmax 100.8, currently temp of 98.7. Blood pressure was 105/60 with a pulse of 67 and is satting 96% on room air. He is UA is negative, COVID test is negative, flu test is negative. White count was
10, hemoglobin and platelets were normal. Electrolytes BUN/creatinine were all normal.
CT of the abdomen shows prior appendectomy with appropriate postsurgical changes, no fluid collection or abscess. No other inflammatory findings.
Medical History
Past Medical History
Past Medical History: Reports Other
Additional Past Medical History:
ASCVD
GERD
Past Surgical History: Reports Other
Additional Past Surgical History:
PTCA with Stent (2019)
T&A
Social History
Tobacco: Former Smoker (History of tobacco use > 20 pack years. Current vape use.)
Alcohol: Occasional
Drug: None
Family History
Family History: Not pertinent
Allergies / Home Medications
Allergies reflects when Allergies were last updated in [facility].
Home Medications with original date entered in [facility]
Allergy/Medication List:
Allergies
Allergy/AdvReac Type Severity Reaction Status Date / Time
Penicillins Allergy Unknown Verified 09/20/24 20:36
Home Medications
aspirin 81 mg chewable tablet 81 mg PO DAILY 03/26/20
atorvastatin 80 mg tablet 80 mg PO QPM #30 tabs 03/27/20
lisinopril 2.5 mg tablet 2.5 mg PO DAILY #30 tabs 03/27/20
metoprolol succinate 25 mg tablet,extended release 24 hr 12.5 mg PO HS 09/21/24
Review of Systems
-
History Source: Patient
Constitutional: Reports Fever
EENT: Reports No Symptoms
Respiratory: Reports No Symptoms
Cardiac: Reports No Symptoms
Abdomen/GI: Reports No Symptoms
: Reports No Symptoms
Musculoskeletal: Reports No Symptoms
Skin: Reports No Symptoms
Neurological: Reports No Symptoms
Endocrine: Reports No Symptoms
Hematologic/Lymphatic: Reports No Symptoms
Psych: Reports No Symptoms
Physical Exam
Vital Signs
Vital Signs
Temp Pulse Resp BP Pulse Ox
98.7 F 67 14 105/59 96
09/29/24 22:26 09/29/24 22:00 09/29/24 22:00 09/29/24 22:00 09/29/24 22:00
Physical Exam
General: Well Developed, Well Nourished, No Apparent Distress and Comfortable
HEENT: NormoCephalic, Anicteric, Moist mucous membranes and Atraumatic
Respiratory: Clear
Cardiac: S1/S2 and Regular Rhythm
Breast: Deferred by me
GI: Soft, Non Tender, Non Distended, Normal Bowel Sounds and Other (suture sites intact)
Rectal: Deferred by Provider
Genito-urinary: Deferred by me
Musculoskeletal: No Clubbing, No Cyanosis and No Edema
Skin: Rash (non-pruritic maculopapular rash on the proximal arms and trunk)
Neuro: AO x 3
Hematologic/Lymphatic: No Lymphadenopathy
Psych: Calm
Laboratory Results
-
09/29/24 17:07
09/29/24 17:07
Laboratory Results
Lactic Acid 1.2 mmol/L (0.7-2.0) 09/29/24 21:34
Total Bilirubin 1.2 mg/dl (0.2-1.3) 09/29/24 17:07
AST 44 U/L (17-59) 09/29/24 17:07
ALT 84 U/L (0-50) H 09/29/24 17:07
Alkaline Phosphatase 65 U/L (38-126) 09/29/24 17:07
Data Reviewed
-
CT Scan: Report Reviewed by me
Lab Data: Labs Reviewed by me
Old Records: Reviewed
Impression/Plan
-
IMPRESSION:
59 male s/p laparoscopic appendectomy 8 days ago coming in with 2 days of fever and some weakness. Feels dehydrated. Temp 100.8. Lactic acid 2.2. labs normal. CT abdomen without acute findings. Viral studies negative. Exam benign. Mild skin
rash. U/A negative.
PLAN:
1. Fever - No obvious source and surgical site without cellulitis
- admit to med/surg observation
- blood cultures pending
- observe off abx for now, completed course of levaquin/flagyl
- IV fluids
- diet as tolerated
- DVT PPX - lovenox sq
Code status - full code
[2024-09-30] VITALS: BP 97/71
[2024-09-30] MEDS: NSS 1000 IV ×3 (02:18→19:50)
[2024-09-30 06:22] LABS: Hematocrit 39.3 % (39.0-52.0); Hemoglobin 13.9 g/dL (13.0-18.0); Mean Corp Hgb Conc. 35.4 g/dL (33.0-37.0); Mean Corpuscular Hgb 30.4 pg (27.0-31.0); Mean Platelet Volume 9.7 fL (7.4-10.4); Platelet Count 176 10^3/uL (130-400); Red Blood Cell Count 4.57 10^6/uL (4.70-6.10); Red Cell Dist. Width 12.3 % (11.5-14.5); White Blood Cell Count 7.9 10^3/uL (4.8-10.8)
[2024-09-30 06:59] LABS: Blood Urea Nitrogen 14 mg/dl (9-20); Calcium 8.3 mg/dl (8.4-10.2); Carbon Dioxide 24 mmol/L (22-30); Chloride 107 mmol/L (98-107); Estimated Creatinine Clearance 121 ml/min; Glucose 115 mg/dl (70-99); Potassium 4.2 mmol/L (3.5-5.1); Sodium 134 mmol/L (135-145); eGFR > 60.00
--- NOTE | 2024-09-30 08:26 | W.PN.HOSP.TC ---
Today's Communication/Plan
-
see PN
Assessment / Plan
Assessment / Plan
59yo M with PMHX of HTN, CAD, HLD, appendectomy on 09/21/24 with gangrenous appendicitis came witgh persistent weakness and new fevers 3 days before admission. He was discharged with Levaquin and FLagyl on 09/21/24, however as per patient - he misread
label on Flgyl bottle and was taking it only once a day. CT repeated in ED found postOP changes. No leukocytosis
A/P:
#Fever, no clear reason, postOP, rule out postOP changes
#Possible assymptomatic bacteriuria
Abdomen non-tender, no diarrhea reported
XR chest pending
UCx pending
CHeck procalcitonin, if neg - will hold off Abx until GenSX eval
#EssentiaL HTN
#HLD
#CAD, stable
cont home meds
#minimal ALT elevation
follow LFT
Check HepC
DVT ppx lovenox
FUll code
I have spent at least 58min reviewing chart, test results, communication with consultants and providing direct patient care
Anticipated Discharge: 24 - 48 hours
Subjective/Interval History
-
Date of Service: September 30, 2024
Objective Data
-
Labs:
Laboratory Results
09/30/24 09/30/24
06:00 06:22
WBC 7.9
Hgb 13.9
Hct 39.3
Plt Count 176
Sodium Cancelled 134 L
Potassium Cancelled 4.2
Chloride Cancelled 107
Carbon Dioxide Cancelled 24
BUN Cancelled 14
Creatinine Cancelled 0.7
Glucose Cancelled 115 H
Calcium Cancelled 8.3 L
Vital Signs:
Vital Signs
Temp Pulse Resp BP Pulse Ox
98.8 F 86 14 97/71 97
09/30/24 06:05 09/30/24 00:00 09/30/24 00:00 09/30/24 00:00 09/30/24 00:00
Review of Systems
-
History Source: Patient
Constitutional: Reports Fever and Fatigue
Physical Exam
-
General: No Apparent Distress
HEENT: Normocephalic
Respiratory: Clear to Auscultation
Cardiac: Regular Rhythm
GI: Soft, Nontender and Nondistended
Musculoskeletal: No Clubbing, No Cyanosis and No Edema
Skin: Warm
Neuro: Awake, Alert, Oriented and AO x 3
Psych: Calm
[2024-09-30] MEDS: ZESTRIL 2.5 MG PO (09:00)
[2024-09-30] MEDS: LOW STRENGTH ASPIRIN 81 MG PO (09:00)
[2024-09-30 09:29] LABS: ALT (SGPT) 59 U/L (0-50); AST (SGOT) 32 U/L (17-59); Albumin 3.1 g/dl (3.5-5.0); Alkaline Phosphatase 48 U/L (38-126); Direct Bilirubin 0.3 mg/dl (0.0-0.4); Total Bilirubin 0.9 mg/dl (0.2-1.3); Total Protein 5.1 g/dl (6.3-8.2)
--- NOTE | 2024-09-30 09:45 | CON.GS ---
Consultation
-
Date/Time Consultation Performed: 09/30/24 0930
Medical History
-
Chief Complaint: rash, fevers
History of Present Illness:
Mr Singletary is a 59 yo male with a h/o CAD/SD with stent in 2019 and recent laparoscopic appendectomy on 09/21/2024 ([facility]) for acute appendicitis. Inflamed, non-perforated appendix with gangrenous changes was noted intraoperatively without abscess and
he was discharged to home later that day on oral antibiotics with Levaquin and Flagyl for 5 days. Initially, he was only taking the Flagyl daily but after he completed the Levaquin on Monday and noticed he had multiple Flagyl tablets left, he
realized he should have been taking it three times a day and so upped the dosage to TID. On Monday, his noted a rash to his arms into his face with UE morbilliform rash still present on exam. He denies urticaria. He notes that on Monday he
began having low grade fevers as well. He notes that he has been quite tired since surgery and has not had much energy. He denies nausea or vomiting but has had diminished appetite. He has been passing small formed stools and denies diarrhea. He
denies dysuria, frequency or urgency but does note his urine has been a bit dark with a stronger odor. He denies abdominal pain with no tenderness on exam. Incisions are well healed without erythema or drainage.
Past Medical History
Past Medical History: CAD, GERD, HTN, Hypercholesterolemia and SD (2019)
Past Surgical History: Appendectomy, Cardiac (ptca with LAD stent 2019) and Tonsilectomy
Social History
Tobacco: Other (previous cigarette smoker, now vapes)
Alcohol: Occasional
Personal:
Living: With Family
Family History
Family History: Reviewed & Not Pertinent
Allergies / Home Medications
Allergy/AdvReac Type Severity Reaction Status Date / Time
metronidazole [From Flagyl] Allergy Mild Rash Verified 09/30/24 09:44
Penicillins Allergy Unknown Verified 09/29/24 16:04
�Medication �Instructions �Recorded �Confirmed �Type
aspirin 81 mg chewable tablet 81 mg PO DAILY 03/26/20 09/29/24 Rx
atorvastatin 80 mg tablet 80 mg PO QPM #30 tabs 03/27/20 09/29/24 Rx
metoprolol succinate 25 mg 12.5 mg PO HS 09/21/24 09/29/24 History
tablet,extended release 24 hr
lisinopril 2.5 mg tablet 2.5 mg PO DAILY 09/29/24 09/29/24 History
Review of Systems
-
History Source: Patient
A 10 point review of systems was completed, and was negative except as per HPI.
Physical Exam
Vital Signs
Temp Pulse Resp BP Pulse Ox
98.3 F 86 14 97/71 97
09/30/24 07:45 09/30/24 09:00 09/30/24 00:00 09/30/24 09:00 09/30/24 00:00
09/29/24 09/30/24 10/01/24
06:59 06:59 06:59
Actual Weight 81.2 kg
Body Mass Index (BMI) 25.0
Lab Results
09/30/24 06:00
09/30/24 06:22
WBC 7.9 10^3/uL (4.8-10.8) 09/30/24 06:00
Hgb 13.9 g/dL (13.0-18.0) 09/30/24 06:00
Hct 39.3 % (39.0-52.0) 09/30/24 06:00
Plt Count 176 10^3/uL (130-400) 09/30/24 06:00
Abs Immat Gran (auto) 0.1 10^3/uL (0-0.05) H 09/29/24 17:07
Neutrophils % 76.7 % (42.2-75.2) H 09/29/24 17:07
Physical Exam
General: Well Developed and Well Nourished
HEENT: Moist Mucous Membranes
Respiratory: Non Labored Respirations
GI: Soft, Non Tender, Non Distended and Other (Incisions healing well from recent laparoscopic procedure)
Skin: Warm and Rash (morbilliform rash to arms)
Neuro: Awake, Alert and AO x 3
Psych: Calm
Assessment / Plan
-
59 yo male who is POD #9 lap appi who went home on levaquin/flagyl presenting with UE rash and low grade fevers. He completed Levaquin on 09/25 and had been taking Flagyl qd not tid until that time. He upped the dose of Flagyle to TID on 09/25 with
development of rash on 09/27 with low grade fevers. He presents for evaluation. ABD exam reassuring without tenderness, benign. CT without abscess or acute findings. Surgical wound bed consistent with recent surgical procedure on CT. Incisions healing
well. Morbilliform rash to arms suggestive of a drug reaction, suspect metronidazole given timing of onset of rash/low grade fevers. He denies urticaria. He has no leukocytosis. No n/v/d. No cough/sob. Denies dysuria. Covid and flu neg, UA with
+leuks, with cx pending. Blood cx pending. Last fever was yesterday evening around 8:30pm. VSS.
--Would follow off abx from surgical standpoint
--Added Flagyl to patients allergy list
--Diet as tolerated
--Await cultures
--Medical management/work up as per primary team
[2024-09-30 10:09] LABS: % Eosinophils 3.5 % (0-6); % Immature Granulocytes 0.6 % (0-0.5); % Lymphocytes 15.2 % (20.5-51.1); % Monocytes 5.2 % (1.7-9.3); % Neutrophils 75.5 % (42.2-75.2); Absolute Eosinophils 0.3 10^3/uL (0-0.7); Absolute Lymphocytes 1.1 10^3/uL (1.2-3.4); Absolute Monocytes 0.4 10^3/uL (0.1-0.6); Absolute Neutrophils 5.4 10^3/uL (1.4-6.5); Nucleated Red Blood Cells % 0 % (-)
[2024-09-30 10:25] LABS: Hepatitis C Antibody Negative (Negative)
--- NOTE | 2024-09-30 11:08 | PTCARENOTE ---
red rash noted over pt trunk and bilat arms
[2024-09-30 11:50] VITALS: BP 107/69
--- NOTE | 2024-09-30 12:41 | CM ---
CM met with pt and spouse bedside
[place]
Pt is indep with his ADLs
Denies use of DMEs
PCP- Zoe Lemus
Rx- Slade Agee
Discharge Disposition- home, no needs anticipated
[2024-09-30 13:30] VITALS: BP 104/67; BMI 25.9
[2024-09-30 14:50] LABS: Procalcitonin 0.13 ng/ml (0.0-0.25)
[2024-09-30] MEDS: LOVENOX 40 MG SC (17:00)
[2024-09-30] MEDS: LIPITOR 80 MG PO (17:00)
[2024-09-30] MEDS: TOPROL XL 12.5 MG PO (21:07)
[2024-09-30 23:08] VITALS: BP 97/57
[2024-10-01] MEDS: NSS 1000 IV (03:20)
[2024-10-01 04:26] VITALS: BP 112/70
[2024-10-01 07:50] VITALS: BP 103/63
[2024-10-01] MEDS: LOW STRENGTH ASPIRIN 81 MG PO (08:27)
[2024-10-01] MEDS: ZESTRIL PO (08:38)
--- NOTE | 2024-10-01 10:48 | W.PN.HOSP.TC ---
Today's Communication/Plan
-
dc
Assessment / Plan
Assessment / Plan
59yo M with PMHX of HTN, CAD, HLD, appendectomy on 09/21/24 with gangrenous appendicitis came witgh persistent weakness and new fevers 3 days before admission. He was discharged with Levaquin and FLagyl on 09/21/24, however as per patient - he misread
label on Flgyl bottle and was taking it only once a day. CT repeated in ED found postOP changes. No leukocytosis. Fevers resolved. UCx neg, no pneumonia on chest XR. Medically stable for d/c home off antibiotics. Patient advised to come back to ED
if any worsening of his condition
A/P:
#Fever, no clear reason, postOP, rule out postOP changes
#Possible asymptomatic bacteriuria
Abdomen non-tender, no diarrhea reported
XR chest pending
UCx pending
Procalcitonin low
GenSx: keep off Abx, possible serum sickness like reaction to Flagyl
#Essential HTN
#HLD
#CAD, stable
cont home meds
#minimal ALT elevation
follow LFT - improving
HepC neg
DVT ppx lovenox
FUll code
I have spent at least 38min reviewing chart, test results, communication with consultants and providing direct patient care
Anticipated Discharge: Today
Subjective/Interval History
-
Date of Service: October 01, 2024
Objective Data
-
Vital Signs:
Vital Signs
Temp Pulse Resp BP Pulse Ox
97.6 F 47 14 103/60 97
10/01/24 07:50 10/01/24 08:38 10/01/24 07:50 10/01/24 08:38 10/01/24 09:15
I&O
09/30/24 10/01/24 10/02/24
06:59 06:59 06:59
Intake Total 1979
Balance 1979
Review of Systems
-
History Source: Patient
All other systems: Reviewed and negative
Physical Exam
-
General: Comfortable
HEENT: Normocephalic
Respiratory: Clear to Auscultation
GI: Soft, Nontender and Nondistended
Skin: Warm
Neuro: Awake, Alert, Oriented and AO x 3
Psych: Calm
--- NOTE | 2024-10-01 10:55 | W.DCSUMMARY ---
Discharge Summary
Discharge Data
Date of Admission: 09/29/24
Date of Discharge: 10/01/24
-
Pending Results: No
Hospital Course
59yo M with PMHX of HTN, CAD, HLD, appendectomy on 09/21/24 with gangrenous appendicitis came witgh persistent weakness and new fevers 3 days before admission. He was discharged with Levaquin and FLagyl on 09/21/24, however as per patient - he misread
label on Flgyl bottle and was taking it only once a day. CT repeated in ED found postOP changes. No leukocytosis. Fevers resolved. UCx neg, no pneumonia on chest XR. Medically stable for d/c home off antibiotics. Patient advised to come back to ED
if any worsening of his condition
I have spent at least 38min reviewing chart, test results, communication with consultants and providing direct patient care
Patient was managed for:
#Fever, no clear reason, postOP, rule out postOP changes
#asymptomatic bacteriuria
#Essential HTN
#HLD
#CAD, stable
#minimal ALT elevation
Discharge Plan
-
Patient Disposition: Home (Routine Discharge)
Discharge Diagnosis/Procedures: fever
Diet: Regular
Activity: No strenuous activity
Additional Activity: Do not lift over 15lbs for 1-2 weeks
Bathing Restrictions: OK to Shower
Referrals:
Alexandre Dietrich MD [Active] - in one to two weeks
Zoe Lemus PA-C [Family Provider] -
Prescriptions:
Continued
aspirin 81 MG tablet,chewable
81 mg PO DAILY 0RF
atorvastatin 80 MG tablet
80 mg PO QPM Qty: 30 5RF
metoprolol succinate 25 MG tablet extended release 24 hr
12.5 mg PO HS
lisinopril 2.5 MG tablet
2.5 mg PO DAILY
Discharge Orders:
Discharge Patient (As Directed); Ordered 10/01/24
Ordered By: Chris Saunders
Discharge Date and Time
Print Language: POLISH
--- NOTE | 2024-10-01 11:14 | CM ---
Patient seen bedside.
Patient aware of CM availability should needs arise.
Spouse will transport.
Plan: home no needs.
[2024-10-01 11:28] VITALS: BP 104/65
== END 2024-10-01 11:50 | disposition home or self-care (01) ==
LOC: 1 ACUTE 23:24
PROVIDERS: Emergency Medicine; Physician Assistant; ADMITTING PHYSICIAN Internal Medicine; ATTENDING PHYSICIAN Internal Medicine; EMERGENCY PHYSICIAN Student in an Organized Health Care Education/Training Program; FAMILY PHYSICIAN Physician Assistant Medical; OTHER PHYSICIAN Surgery
DX: R50.9 Fever, unspecified (principal); I25.10 Atherosclerotic heart disease of native coronary artery without angina pectoris; E78.00 Pure hypercholesterolemia, unspecified; F17.290 Nicotine dependence, other tobacco product, uncomplicated; E86.0 Dehydration; K57.90 Diverticulosis of intestine, part unspecified, without perforation or abscess without bleeding; D73.89 Other diseases of spleen; I10 Essential (primary) hypertension; R21 Rash and other nonspecific skin eruption; R74.01 Elevation of levels of liver transaminase levels; K21.9 Gastro-esophageal reflux disease without esophagitis; I25.2 Old myocardial infarction; Z90.49 Acquired absence of other specified parts of digestive tract; Z95.5 Presence of coronary angioplasty implant and graft; Z88.0 Allergy status to penicillin; Z79.82 Long term (current) use of aspirin; Z98.890 Other specified postprocedural states; Z11.52 Encounter for screening for COVID-19
CPT/HCPCS: 71046; 74177; 80053; 81003; 81015; 82248; 83605; 84145; 85025; 86803; 87040; 87086; 87502; 87811; 96360; 99285; Q9967

== ENCOUNTER → 2025-05-01 12:55 | Outpatient (REF) | payer OTHER, SELFPAY | LOC: RCS 12:55 | PROVIDERS: ATTENDING PHYSICIAN Nuclear Medicine Nuclear Cardiology; FAMILY PHYSICIAN Physician Assistant Medical | DX: R00.1 Bradycardia, unspecified (principal) | CPT/HCPCS: 93306 ==